=== PATIENT | female | born 1960 | race Caucasian/White ===

== ENCOUNTER → 2024-05-18 | Outpatient (CLI) | payer MEDICARE ==
--- NOTE | 2024-05-18 11:19 | MM ---
Reason for Exam: Screening (asymptomatic). Last mammogram was performed 6 year(s) and 9 month(s) ago. Patient History: Menarche at age 11. First Full-Term at age 17. Postmenopausal. Mother had breast cancer, age 47. Risk Values: Keyonna 5 year model risk: 3.1%. NCI Lifetime model risk: 11.0%. Tissue Density: The breasts are heterogeneously dense, which may obscure small masses. Findings: Analyzed By CAD. Right breast: There is no suspicious group of microcalcifications or new suspicious mass. Left breast: There is no suspicious group of microcalcifications or new suspicious mass. Overall Assessment: Negative, BI-RAD 1 Management: Screening Mammogram of both breasts in [address] [facility] will attempt to contact patient to return for supplemental views and ultrasound if indicated. Patient should continue monthly self-breast exams. A clinical breast exam by your physician is recommended on an annual basis. This exam should not preclude additional follow-up of suspicious palpable abnormalities. Note on Keyonna scores and lifetime risk: 1. A Keyonna score greater than 3% is considered moderate risk. If this is the case, consider specialist referral to assess eligibility for a risk reducing agent. 2. If overall lifetime risk for the development of breast cancer is 20% or higher, the patient may qualify for future screening with alternating mammogram and breast MRI. [facility], , 05/18/2024 11:15 AM. Electronically signed and approved by: Ruben Gann DO
--- NOTE | 2024-05-21 17:18 | BD ---
EXAMINATION TYPE: Axial Bone Density DATE OF EXAM: 05/18/2024 CLINICAL HISTORY: 64 years old Female. ICD-10 CODE: Z78.0; Z13.820 SCREENING FOR OSTEO, [place] , Additional History: Height: 61.2 in Weight: 111 lbs EXAM MEASUREMENTS: Bone mineral densitometry was performed using the [employer] System. Bone mineral density as measured about the Lumbar spine is: ----- L1-L4(G/cm2): 1.070 T Score Values are as follows: ----- L1: -1.6 ----- L2: -1.4 ----- L3: -0.6 ----- L4: -0.4 ----- L1-L4: -0.9 Z Score Values are as follows: ----- L1: 0.5 ----- L2: 0.7 ----- L3: 1.5 ----- L4: 1.7 ----- L1-L4: 1.2 Bone mineral density baseline Bone mineral density about the R hip (g/cm2): 0.884 Bone mineral density about the L hip (g/cm2): 0.870 T Score values are as follows: -----R Neck: -1.8 -----L Neck: -1.9 -----R Total: -1.0 -----L Total: -1.1 Z Score values are as follows: -----R Neck: 0.0 -----L Neck: -0.1 -----R Total: 0.6 -----L Total: 0.5 Bone mineral density baseline FRAX%s: The graph provided illustrates a 9.6% chance for a major osteoporotic fx and a 1.5% chance fo r the hips probability for fx in 10 years time. IMPRESSION: Osteopenia (T Score between -2.5 and -1). There is slightly increased risk of fracture and the patient may be considered for treatment. Re-Screen 2-5 years. NOTE: T-SCORE=SD OF THE YOUNG ADULT MEAN. [facility], , 05/21/2024 5:16 PM
== END | disposition home or self-care (01) ==
LOC: RADMAMWWP 10:51
PROVIDERS: ATTEND Family Medicine
DX: Z12.31 Encounter for screening mammogram for malignant neoplasm of breast (principal); Z13.820 Encounter for screening for osteoporosis; M85.89 Other specified disorders of bone density and structure, multiple sites; R92.333 Mammographic heterogeneous density, bilateral breasts; Z80.3 Family history of malignant neoplasm of breast; Z78.0 Asymptomatic menopausal state
CPT/HCPCS: 77063; 77067; 77080